=== PATIENT | male | born 1975 | race Asian ===

== ENCOUNTER 2019-07-01 11:52 | Day surgery (SDC) | payer OTHER ==
[~2019-07-01] VITALS: Ht 162.6 cm; Wt 63.5 kg
--- NOTE | ~2019-07-01 | OR ---
[facility] [address] [facility] [place], [place] [address] Draft DATE OF OPERATION: 07/01/2019 SURGEON: Piter Wolff MD PREOPERATIVE DIAGNOSES: 1. Substernal and epigastric pain and anemia. 2. Recently diagnosed thalassemia (according to patient). POSTOPERATIVE DIAGNOSIS: Normal except for islands of possible Das's epithelium at 15 cm. PROCEDURE: Esophagogastroduodenoscopy with biopsy. ANESTHESIA: Intravenous sedation, fentanyl 100 mcg, Versed 2 mg. INDICATION: This 43-year-old -[place] man is a patient of RODNEY Gruber, and has had complaints of substernal burning pain and epigastric pain as well as anemia. He is treated with vitamin C and omeprazole. His symptoms have improved. He is admitted to undergo upper endoscopy to assess for possible heartburn. Notably, the patient is from [place] or at least the surrounding area of [place] and has a number of family members who are in the [place] as well. He has not had upper endoscopy in the past and he is not known to have ulcer. He is admitted to undergo upper endoscopy to better characterize this problem. He tells me immediately prior to the procedure that he was diagnosed with "thalassemia", which may account for his anemia. As regards to his symptoms, they are improved with PPI medication. FINDINGS: The esophagus, stomach, and duodenum were generally normal including the flap valve. There is certainly no ulcer and CLOtest was negative. He did have at 15 cm from the incisor at least two small islands of ectopic mucosa, which may represent aberrant gastric mucosa versus Das's epithelium. These were biopsied. DESCRIPTION OF PROCEDURE: The patient was brought to the endoscopy suite and placed in lateral decubitus position, given intravenous sedation to the point of slurred speech and nystagmus. He underwent PATIENT NAME: ANDREAS MUELLER OPERATIVE REPORT DATE OF : 75 REPORT #: [id number] PHYSICIAN: PITER WOLFF MD PCP: ALFA CUELLAR REPORT IS CONFIDENTIAL AND NOT TO BE RELEASED WITHOUT AUTHORIZATION [facility] [address] [place], [place] [address] Draft Hurricaine topical anesthesia prior to sedation. After satisfactory sedation, a full cardiopulmonary monitoring and a bite block were placed. An Olympus video upper endoscope was passed in the hypopharynx. The vocal cords appeared normal. Scope was advanced to the esophagus without problem. Throughout its length, the esophagus was normal. Scope was passed in the stomach and was insufflated with air. Rugal folds were normal as was the antrum. The pylorus was normal. Scope was passed through into the duodenum. The duodenum was normal. Biopsies were obtained there to assess for celiac disease. Nevertheless, the scope was then withdrawn to the antrum where biopsies were taken for both BRYAN and pathologic testing. Retroflexed view showed a reasonably good flap valve. No sign of hiatal hernia. Scope was withdrawn to the distal esophagus, which was normal. Biopsies were taken nevertheless. Careful withdrawal of scope identified at 15 cm from the incisors, two islands highly consistent with Das's epithelium, though they could represent ectopic gastric mucosa otherwise. These were biopsied as well. The scope was removed. The patient was taken to recovery room in good condition. CONCLUDING DIAGNOSIS: Anemia, likely related to thalassemia if true. No clinical evidence of esophagitis but did have Das's epithelium at 15 cm, unless this is proven to be ectopic gastric mucosa, which is a somewhat different diagnosis. PLAN: He will continue with his omeprazole on a daily basis and see us back in 4-6 weeks for review of his pathology report. MD KAMILLE Case/MAVERICKL /[id number] cc: RODNEY Dey Copies: ALFA CUELLAR PATIENT NAME: ANDREAS MUELLER OPERATIVE REPORT DATE OF : 75 REPORT #: [id number] PHYSICIAN: PITER WOLFF MD PCP: ALFA CUELLAR REPORT IS CONFIDENTIAL AND NOT TO BE RELEASED WITHOUT AUTHORIZATION [facility] [address] [place] [address] [place], [place] [address] Draft ~ PATIENT NAME: ANDREAS MUELLER OPERATIVE REPORT DATE OF : 75 REPORT #: [id number] PHYSICIAN: PITER WOLFF MD PCP: ALFA CUELLAR REPORT IS CONFIDENTIAL AND NOT TO BE RELEASED WITHOUT AUTHORIZATION
[~2019-07-01 11:52] MED LIST: OMEPRAZOLE40 MG PO; VITAMIN C100 MG
--- NOTE | 2019-07-01 13:23 | NUR ---
07/01/19 1323 Sheets,Kadie 1317 PT ARRIVED TO PACU ON 3L VIA NC, PT WAKES EASILY TO VERBAL STIMULI AND IS REORIENTED TO PACU. PT FALLSEASILY BACK TO SLEEP AND RESP EVEN AND UNLABORED. VSS.
--- NOTE | 2019-07-02 17:14 | PATH ---
[facility] [address] [place], [place] [address] Signed SPECIMEN(S): A DUODENUM SPECIMEN(S): B ANTRUM/PYLORUS SPECIMEN(S): C LOWER ESOPHAGUS SPECIMEN(S): D ESOPHAGUS AT 15 CM SPECIMEN SOURCE: A. DUODENUM B. ANTRUM/PYLORUS C. LOWER ESOPHAGUS D. ESOPHAGUS AT 15 CM CLINICAL HISTORY: Anemia, retrosternal pain, burning epigastric pain. Post: Das's at 15 cm. MICROSCOPIC DESCRIPTION: Histologic sections of all submitted blocks are examined by light microscopy. These findings, together with the gross examination, support the pathologic diagnosis. FINAL PATHOLOGIC DIAGNOSIS: A. Duodenum, biopsy: - Benign duodenal mucosa, negative for significantly increased intraepithelial lymphocytosis and villous blunting. B. Antrum/pylorus, biopsy: - Benign gastric mucosa with minimal vascular congestion. - Negative for intestinal metaplasia. - Negative for Helicobacter pylori organisms on routine stain. C. Lower esophagus, biopsy: - Fragments of benign squamous epithelium and detached fragments of gastric mucosa. D. Esophagus at 15 cm, biopsy: - Fragments of reactive squamocolumnar mucosa with increased acute and chronic inflammation. - Negative for intestinal metaplasia and dysplasia. DDF:slh:C2NR GROSS DESCRIPTION: Four specimens are received in four containers, labeled "ZL." A. The specimen, labeled "ZL, duodenum" per requisition, is received in formalin and consists of two sosa soft tissue fragments that measure 0.3 cm in greatest dimension. The specimen is entirely PATIENT NAME: ANDREAS MUELLER PATHOLOGY DATE OF : 75 REPORT #: [id number] PHYSICIAN: NILDA COSTA PCP: ALFA CUELLAR REPORT IS CONFIDENTIAL AND NOT TO BE RELEASED WITHOUT AUTHORIZATION [facility] [address] [place], [place] [address] Signed submitted in cassette (A1). B. The specimen, labeled "ZL, antrum/pylorus" per requisition, is received in formalin and consists of two sosa soft tissue fragments that measure 0.3 cm in greatest dimension. The specimen is entirely submitted in cassette (B1). C. The specimen, labeled "ZL, lower esophagus" per requisition, is received in formalin and consists of three sosa soft tissue fragments that measure 0.5 cm in greatest dimension. The specimen is entirely submitted in cassette (C1). D. The specimen, labeled "ZL, esophagus at 15 cm," is received in formalin and consists of two sosa soft tissue fragments that measure 0.3 cm in greatest dimension. The specimen is entirely submitted in cassette (D1). AT(under the direct supervision of a pathologist) The Gross Description was prepared using a voice recognition system. The report was reviewed for accuracy; however, sound-alike word errors, addition and/or deletions may occur. If there is any question about this report, please contact Client Services. PERFORMING LABORATORY: The technical component was performed by [facility], [address] [place] [id number] (Technical Sales Director: Yessenia Mcclendon MD; CLIA# [id number]). The professional interpretation was performed by [facility], [facility], [address] [place] [address]. Diagnostician: Ace Webb DO Pathologist Electronically Signed 07/02/2019 Copies: ~ PATIENT NAME: ANDREAS MUELLER PATHOLOGY DATE OF : 75 REPORT #: [id number] PHYSICIAN: NILDA COSTA PCP: ALFA CUELLAR REPORT IS CONFIDENTIAL AND NOT TO BE RELEASED WITHOUT AUTHORIZATION
== END 2019-07-01 14:00 | disposition home or self-care (01) ==
LOC: OPS 11:52 → DS 11:52 → OPS 13:00 → DS 13:00 → OPS 14:00
PROVIDERS: Surgery
PROC: 0DB78ZX Excision of Stomach, Pylorus, Via Natural or Artificial Opening Endoscopic, Diagnostic (ICD-10-PCS; 2019-07-01)
PROC: 0DB38ZX Excision of Lower Esophagus, Via Natural or Artificial Opening Endoscopic, Diagnostic (ICD-10-PCS; 2019-07-01)
PROC: 0DB58ZX Excision of Esophagus, Via Natural or Artificial Opening Endoscopic, Diagnostic (ICD-10-PCS; 2019-07-01)
PROC: 0DB98ZX Excision of Duodenum, Via Natural or Artificial Opening Endoscopic, Diagnostic (ICD-10-PCS; principal; 2019-07-01 13:00)
DX: K21.0 Gastro-esophageal reflux disease with esophagitis (principal); K31.89 Other diseases of stomach and duodenum; K25.9 Gastric ulcer, unspecified as acute or chronic, without hemorrhage or perforation; D64.9 Anemia, unspecified; Z91.048 Other nonmedicinal substance allergy status
CPT/HCPCS: J2250; J3010; J7121

== ENCOUNTER 2021-09-07 17:25 | Emergency (ER) | payer OTHER ==
[~2021-09-07] VITALS: Ht 162.6 cm; Wt 63.5 kg
[2021-09-07] MEDS ORDERED: HYDROCODON-ACE1 EA10 PO (19:01)
== END 2021-09-07 19:30 | disposition home or self-care (01) ==
LOC: ED 17:25
DX: T23.302A Burn of third degree of left hand, unspecified site, initial encounter (principal); T22.212A Burn of second degree of left forearm, initial encounter; T22.211A Burn of second degree of right forearm, initial encounter; X10.2XXA Contact with fats and cooking oils, initial encounter; Y99.0 Civilian activity done for income or pay; Z91.09 Other allergy status, other than to drugs and biological substances
CPT/HCPCS: 99283; A9270